=== PATIENT | female | born 1995 | race Two or more races ===

== ENCOUNTER 2020-11-14 13:39 | Emergency (ER) | payer OTHER ==
[2020-11-14 13:56] VITALS: BP 101/68; PULSE 84; TEMP 98.1; BMI 22.4
[2020-11-14] MEDS ORDERED: KETOROLAC TROMETHAMINE 30 MG/1 ML VIAL IM ONE (14:28)
[2020-11-14] MEDS ORDERED: KETOROLAC TROMETHAMINE 30 MG/1 ML VIAL ONE (14:30)
== END 2020-11-14 15:37 | disposition home or self-care (01) ==
LOC: JERFT 13:39
PROC: 3E0233Z Introduction of Anti-inflammatory into Muscle, Percutaneous Approach (ICD-10-PCS; principal; 2020-11-14)
DX: M54.5 Low back pain (principal)
CPT/HCPCS: 72100-TC-FY; 99284-25